=== PATIENT | male | born 1990 | race African-American/Black ===

== ENCOUNTER 2018-01-16 15:51 | Inpatient (IN) ==
--- NOTE | 2018-01-16 16:25 | ED ---
HPI General Chief Complaint: Psychiatric Symptoms Stated Complaint: Pysch Eval Time Seen by Provider: 01/16/18 16:22 Source: other (Dr. Gongora, [facility] ER physician) History of Present Illness HPI Narrative: This is a 27-year-old male who is Garcia acted by Dr. Dent, ER physician in [facility] and was transferred here for continued treatment and evaluation for psychiatry. Refer to patient visit number [id number] for Dr. Dent's documentation and medical clearance. He was medically cleared by Dr. Gongora prior to being transported. I received report from Dr. Gongora and he says patient has history of schizophrenia and has not been taking his medications 1 months and has been hallucinating and is having homicidal ideations towards his father. Related Data Home Medications Medication Instructions Recorded Confirmed aripiprazole 10 mg PO DAILY 01/16/18 01/16/18 benztropine 1 mg PO BID 01/16/18 01/16/18 citalopram 40 mg PO DAILY 01/16/18 01/16/18 paliperidone palmitate [Invega 156 mg IM QMONTH 01/16/18 01/16/18 Sustenna] Allergies Allergy/AdvReac Type Severity Reaction Status Date / Time No Known Allergies Allergy Unverified 01/16/18 12:07 [facility] Social History Social History Substance History: No History of Abuse and Past History Second Hand Smoke Exposure: Yes Smoking Status: Never smoker How Often Do You Have a Drink Containing Alcohol: Never Course Initial Documented Vital Signs Temperature 99.0 F 01/16/18 17:00 Pulse Rate 83 01/16/18 17:00 Respiratory Rate 18 01/16/18 17:00 Blood Pressure 152/96 H 01/16/18 17:00 Pulse Oximetry 99 01/16/18 17:00 Last Documented Vital Signs Temperature 98.7 F 01/19/18 06:00 Pulse Rate 90 01/19/18 06:00 Respiratory Rate 17 01/19/18 06:00 Blood Pressure 114/65 01/19/18 06:00 Pulse Oximetry 98 01/19/18 06:00 Medical Decision Making MDM Narrative Medical decision making narrative: Patient was transferred from [facility] by Dr. Dent under Garcia act. He was medically cleared prior to being transported from [facility]. Refer to patient visit number [id number] for Dr. Dent's documentation and medical clearance. I reviewed the labs and they were unremarkable. Psych screen ordered. Medical Screen Exam Complete: Yes Emergency Medical Condition: Yes Differential Diagnosis Differential Diagnosis: Schizophrenia, homicidal ideation, hallucinations, medical clearance for psychiatric evaluation Lab Data Lab Results 01/17/18 01/17/18 Range/Units 12:27 12:27 Hemoglobin A1c 5.4 (4.3-6.0) % Total Bilirubin 0.4 (0.2-1.0) mg/dL Direct Bilirubin 0.1 (0.0-0.2) mg/dL Indirect Bilirubin 0.3 (0.0-0.8) mg/dL AST 19 (15-37) U/L ALT 39 (12-78) U/L Alkaline Phosphatase 126 H (45-117) U/L Total Protein 7.5 (6.4-8.2) g/dL Albumin 3.7 (3.4-5.0) g/dL Triglycerides 228 H (42-150) mg/dL Cholesterol 175 (120-200) mg/dL LDL Cholesterol, Calc 98 (0-99) mg/dL HDL Cholesterol 31.4 L (40.0-60.0) mg/dL Cholesterol/HDL Ratio 5.57 Ratio Discharge Plan Discharge Disposition Patient Disposition: 30 Still Patient Discharge Condition Condition: Stable Discharge Details Diagnosis: Encounter for medical clearance for patient hold Physicians Team ED Provider: Faisal Rosales ED Midlevel Provider: La Nena Elise Primary Care Provider: UNKNOWN, Attending Provider: Caleb Cagle Other Providers: Caleb Cagle ; Utilizer, High Service Status ED Status: Left Department Discharge Information Discharge Date/Time: 01/16/18 21:26
[2018-01-16] MEDS ORDERED: Aluminum/Magnesium/Simethacone Susp 30 ML UDC PO PRN (19:42)
[2018-01-16] MEDS ORDERED: Acetaminophen 325 MG Tablet PO PRN (19:42)
[2018-01-17] MEDS ORDERED: LORazepam 1 MG Tablet PO PRN (10:38)
--- NOTE | 2018-01-17 10:40 | P.HPPSY ---
Provisional Diagnosis Admission Date: January 16, 2018 19:57 [place] [facility].: Schizophrenia Competence Certification of Person's Competence To Provide Express and Informed Consent I have personally examined Ever Dumont II, a person being served at [facility] on, January 17, 2018 1039. Express and informed consent means consent voluntarily given in writing, by a competent person, after sufficient explanation and disclosure of the subject matter involved to enable the person to make a knowing and willful decision without any element of force, fraud, deceit, duress, or other form of constraint or coercion. This person is 18 years of age or older, is not now known to be incompetent to consent to treatment with a guardian advocate, and does not have a health care surrogate or proxy currently making medical treatment decisions. I have found this person to be one of the following: [] Competent to provide express and informed consent, as defined above, for voluntary admission to this facility and is competent to provide express and informed consent for treatment. He/she has the consistent capacity to make well reasoned, willful, and knowing decisions concerning his or her medical or mental health treatment. The person fully and consistently understands the purpose of the admission for examination/placement and is fully capable of personally exercising all rights assured under [place]] Incompetent to provide express and informed consent to voluntary admission , and this is incompetent to provide express and informed consent to treatment. The person must be transferred to involuntary status and a petition for a guardian advocate filed with the Circuit Court. [] Refusing to provide express and informed consent to voluntary admission but is competent to provide express and informed consent for treatment. The person must be discharged or transferred to involuntary status. Form shall be completed within 24 hours of a person's arrival at the receiving facility and filed in the clinical record of each person: 1. Admitted on a voluntary basis 2. Permitted to provide express and informed consent to his/her own treatment 3. Allowed to transfer from involuntary to voluntary status 4. Prior to permitting a person to consent to his or her own treatment after having been previously found incompetent to consent to treatment. History of Present Illness Capacity: Lacks capacity History of Present Illness: Patient is a 27-year-old -Chinese man, single, no children, employed, domiciled with parents and brother, with a past psychiatric history of schizophrenia, one previous psychiatric admissions, multiple suicide attempts as per patient's, with no significant substance her past medical history, who was brought in under Garcia act by physician in the ER due to patient endorsing auditory hallucinations, homicidal ideations toward his father which patient was admitted to the inpatient psychiatry unit for further evaluation and management. Patient was found sitting hospital bed noted B, cooperative. Patient said he is feeling "okay" stating that he had "a dad and aware people who act like my dad, or impersonate him". Patient states that this has been happening all his life, noted be disorganized, rambling at times, loosening associations and tangential. Patient mentions having stopped his medications in May of this year and that he been endorsing auditory hallucinations command at times, as well as belief that everyone wanted to murder his father or that his father should kill himself which she states recurrent from the voices, family or friends. He mentions that he is having auditory hallucinations "all my life basically" and worse recently. Patient denies any SI or HI at this time but states that he wants his father to or go away. Collateral information obtained by patient's mother and father via telephone stated that the patient had been noted to be talking to himself for a while, stopped his medications about 8 months. He has noticed that S patient with talked himself he would mention toward his father recently that "everyone wanted to follow to kill himself" and that later had stated that he was having command auditory hallucinations to slit his father's throat which brought immediate concern to the family which led to patient being brought to the hospital. They state that the patient has follow-up at [facility] in [place]. Reported patient was previously on a day sustained last time being 1 year ago which patient had done very well well on this regimen. Past psychiatric history: Previous psychiatric diagnoses schizophrenia, one previous psychiatric admission, reports multiple suicide attempts Substance use history: Tobacco use occasionally, no alcohol or drug use. Past medical history: Denies Allergies: NKDA as per chart patient reports penicillin as a child Social history: Single, no children, unemployed, domiciled with parents and brother. - Inpatient Certification I certify that the inpatient services were ordered in accordance with Medicare regulations governing the order. This includes certification that hospital inpatient services are reasonable and necessary and in the case of services not specified as inpatient-only under 42 CFR 419.22(n), that they are appropriately provided as inpatient services in accordance to with the 2-midnight benchmark under 43 CFR 412.3(e) I certify that inpatient psychiatric hospital services are medically necessary. Evaluation and treatment and/or diagnostic testing are expected to improve the patient's condition. The patient needs on a daily basis, active treatment furnished directly by or requiring the supervision of inpatient psychiatric facility personnel. Estimated Total Length of Stay (Days): 7 Plans for Post Hospital Care: Not yet determined Review of Systems All other systems reviewed negative except as [facility] - History History Provided By: Patient, Family Member, Medical Record - Medical History Medical History: Medical History (Last Reviewed 01/16/18 @ 21:11 by Eyad Jamison MD) Schizophrenia - Surgical History Surgical History: Surgical History (Last Reviewed 01/16/18 @ 21:11 by Eyad Jamison MD) No history of previous surgery - Tobacco History Second Hand Smoke Exposure: Yes Smoking Status: Never smoker - Alcohol History How Often Do You Have a Drink Containing Alcohol: Never - Substance Use History Substance History: Past History - Immunization History Tetanus Immunization: >5 Years Hx Influenza Vaccine This Season: No Quality Measures - Psychiatric History Violence risk to others in the last 6 months: Elevated due to recent homicidal ideations Violence risk to self in the last 6 months: Low - Substance Abuse History Drug or alcohol use in the past 12 months: Denies - Patient Strengths Patient's strengths (minimum of 2): Verbal and communicative Medications and Allergies Active Medications: Active Medications Acetaminophen (Tylenol) 650 mg PO Q4H PRN PRN Reason: Pain 1-5 or Temp >101F Al Hydrox/Mg Hydrox/Simethicone (Mag-Al Plus Susp Liq) 30 ml PO Q6H PRN PRN Reason: DYSPEPSIA Al Hydroxide/Mg Hydroxide (Milk Of Magnesia Liq) 30 ml PO Q12H PRN PRN Reason: Mild Constipation Benztropine Mesylate (Cogentin) 0.5 mg PO BID ALYSON Diphenhydramine HCl (Benadryl) 50 mg PO HS PRN PRN Reason: INSOMNIA Lorazepam (Ativan) 1 mg PO Q6H PRN PRN Reason: ANXIETY Nicotine (Habitrol 21 Mg Patch.24 Hr) 1 patch T-DERMAL DAILY PRN PRN Reason: nicotine craving Patch Removal (Remove Old Patch) 1 each T-DERMAL DAILY ALYSON Risperidone (Risperdal) 1 mg PO BID ALYSON Allergies Allergy/AdvReac Type Severity Reaction Status Date / Time No Known Allergies Allergy Unverified 01/16/18 12:07 Home Medications Medication Instructions Recorded Confirmed Type aripiprazole 10 mg PO DAILY 01/16/18 01/16/18 History benztropine 1 mg PO BID 01/16/18 01/16/18 History citalopram 40 mg PO DAILY 01/16/18 01/16/18 History paliperidone palmitate [Invega 156 mg IM QMONTH 01/16/18 01/16/18 History Sustenna] Exam Vital signs: Vital Signs 01/16/18 17:00 01/16/18 23:11 01/17/18 06:00 Temperature 99.0 F 97.6 F 98.2 F Pulse Rate 83 88 82 Respiratory Rate 18 20 Blood Pressure 152/96 H 138/95 H 140/76 Pulse Oximetry 99 96 97 Intake & Output 01/16/18 01/17/18 01/17/18 18:59 06:59 18:59 Weight 123.3 kg Other: Weight On Admission 123.3 kg Narrative: Patient not noted to be in acute distress, no signs of gross motor abnormalities , no signs of tremor or EPS, no psychomotor agitation or retardation. - Constitutional no acute distress, cooperative Mental Status Examination Appearance: Appropriate Consciousness: Alert Orientation: Person, Place Motor Activity: Normal gait Speech: Unremarkable Language: Adequate Fund of Knowledge: Inadequate Attention and Concentration: Inadequate Memory: Impaired Mood: Other ("Okay") Affect: Blunt Thought Process & Associations: Loose associations, Disorganized, Tangential, Other (Rambling at times) Thought Content: Bizarre thinking, Hallucinations, Delusional Hallucination Type: Auditory Delusion Type: Paranoid Suicidal Ideation: No Suicidal Plan: No Suicidal Intention: No Homicidal Ideation: Yes Homicidal Plan: No Homicidal Intention: No Insight: Poor Judgment: Poor Assessment and Plan - Assessment (1) Schizophrenia Code(s): F20.9 - Schizophrenia, unspecified Status: Acute - Plan Plan: Estimated LOS: [] days Patient is a 37-year-old -Chinese man who carries a diagnosis schizophrenia, previous psychiatric admissions, multiple suicide attempts as per patient, history of noncompliance medication prior to the ED under Garcia act due to worsening psychotic symptoms as well as homicidal ideations toward his father was patient was admitted to the inpatient psychiatry for further psychiatric stabilization. We will start patient on risperidone 1 mg p.o. twice daily for psychosis, benztropine 0.5 mg p.o. twice daily for EPS. We will continue to monitor mood and behavior. Patient will be admitted on involuntary hospitalization, second opinion requested. Patient's mother will serve as health care surrogate and guardian advocate for this admission. Discharge planning a progress. Justification for Continued Inpatient Stay: At risk of further decompensation a lower level of care.
[2018-01-17 13:21] LABS: Albumin 3.7 g/dL (3.4-5.0)
[2018-01-17 13:23] LABS: Chol/HDL Ratio 5.57 Ratio; HDL Cholesterol 31.4 mg/dL (40.0-60.0); Total Protein 7.5 g/dL (6.4-8.2)
[2018-01-17 14:53] LABS: Hemoglobin A1c 5.4 % (4.3-6.0)
--- NOTE | 2018-01-18 16:21 | P.PNPSY ---
Subjective Chief Complaint: Schizophrenia Remarks: Medical record reviewed and discussed with nursing staff. Met with patient in his room with ROSEANNA Toussaint. Patient states that he stopped taking his medication because of the sexual side effects and he does not want to be impotent. Denies SI/HI. He presents very sad with blunted affect. He denies any auditory or visual hallucinations. Review of Systems All other systems reviewed negative except as stated in HPI Mental Status Examination Appearance: Appropriate Consciousness: Alert Orientation: Person, Place Motor Activity: Normal gait Speech: Unremarkable Language: Adequate Fund of Knowledge: Inadequate Attention and Concentration: Easily distracted Memory: Impaired Mood: Sad Affect: Flat, Blunt Thought Process & Associations: Loose associations, Disorganized Thought Content: Bizarre thinking, Hallucinations Hallucination Type: Auditory Delusion Type: Paranoid Suicidal Ideation: No Suicidal Plan: No Suicidal Intention: No Homicidal Ideation: Yes Homicidal Plan: No Homicidal Intention: No Insight: Poor Judgment: Poor Assessment and Plan - Assessment (1) Schizophrenia Code(s): F20.9 - Schizophrenia, unspecified Status: Acute - Plan Plan: Estimated LOS: [] days Patient understand that he needs to take his medications. He would like to talk to the psychiatrist tomorrow about the side effects of medications that he plans to prescribe. Justification for Continued Inpatient Stay: Moving patient to a less restrictive environment may result in his decompensation.
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
[2018-01-19 11:51] LABS: Albumin 3.5 g/dL (3.4-5.0)
[2018-01-19 11:52] LABS: Total Protein 7.2 g/dL (6.4-8.2)
--- NOTE | 2018-01-20 10:46 | P.PNPSY ---
Subjective Chief Complaint: Schizophrenia Remarks: Patient seen and examined with counselor and nurse. Chart reviewed. Case discussed with nursing staff who reports patient's behavior is occasionally bizarre, although there are no reports of aggression. Case discussed in treatment team. On my examination today, patient says that he finds it easier to concentrate with medication adjustment. He visited with his mother last night, and this reportedly went "pretty alright." He continues to believe that his father is an imposter, although this delusion may be softening somewhat. He does say that other people in his house are not worried about father being an imposter. He says that his violent ideation towards father is "way less today." He denies SI/HI otherwise. Denies side effects from medications. No physical complaints. Vital Signs Temp Pulse Resp BP Pulse Ox 01/20/18 05:53 97 H 17 124/73 99 01/19/18 15:41 98.1 F 98 H 18 141/81 H 99 Labs reviewed. Spoke with patient's mother/HCS. She reports patient has done well with Risperdal/Sustenna in the past but has discontinued these meds due to side effects, chiefly weight gain. I did suggest to mother that we continue with the Risperdal/Sustenna plan regardless because of prior efficacy, but she feels strongly that we ought to try a different agent for patient. She does emphasize that the OATES is essential given patient's tendency to stop oral meds. We discuss alternative antipsychotic options and settle on a trial of Abilify. Review of Systems All other systems reviewed negative except as stated in HPI (Limitation: Psychosis.) Mental Status Examination Appearance: Appropriate Consciousness: Alert Orientation: Person, Place (At least) Motor Activity: Normal gait, Other (No motor abnormalities noted.) Speech: Unremarkable Language: Adequate Fund of Knowledge: Inadequate Attention and Concentration: Easily distracted Memory: Impaired (Psychosis interferes) Mood: Other (Calm) Affect: Blunt Thought Process & Associations: Tangential Thought Content: Thought blocking (Perhaps decreasing), Delusional Hallucination Type: None Delusion Type: Paranoid, Other (Capgras regarding father, perhaps softening somewhat) Suicidal Ideation: No Suicidal Plan: No Suicidal Intention: No Homicidal Ideation: Yes (Towards father, decreasing) Homicidal Plan: No Homicidal Intention: No Insight: Poor Judgment: Poor Assessment and Plan - Assessment (1) Schizophrenia Code(s): F20.9 - Schizophrenia, unspecified Status: Acute - Plan Plan: Discontinue Risperdal and start Abilify 10mg qHS with plans to titrate to effect. Will plan on transitioning to Maintena if the oral Abilify is efficacious and well tolerated. R/B/A d/w HCS. Continue to monitor on the inpatient unit. Continue other medications and care as ordered. Justification for Continued Inpatient Stay: Medication changes. Impairment in reality construction. High risk for decompensation in less restrictive environment. Discharge Planning: Pending psychiatric stabilization. Request Healthcare Surrogate/Guardian Advocate?: Yes (1) Schizophrenia Qualifiers: Schizophrenia type: paranoid schizophrenia Qualified Code(s): F20.0 - Paranoid schizophrenia
--- NOTE | 2018-01-20 14:32 | P.TTN ---
- Patient Problems Problems: 1. Discharge planning 2. Medication compliance 3. Knowledge deficit 4. Lack of coping skills - Progress Toward Goals Provider Present: Dr. Jose Cagle (Titrating resperdol. Pt. may recieve long acting injectable.) Psychiatric Counselors Present: Carlos Kraft Jr., RCSWI (Unstable/manic/ psychotic/internally stimulated.) Group Spec/RT/OT/HERNANDEZ Present: DAVID Hawthorne (Pt. does not attend groups.) - Documentation Teaching Recipient: Patient
[2018-01-20] MEDS ORDERED: ARIPiprazole 10 MG Tablet PO SCH (21:00)
--- NOTE | 2018-01-21 11:31 | P.PNPSY ---
Subjective Chief Complaint: Schizophrenia Remarks: Patient seen and examined with nurse. Chart reviewed. Case discussed with nursing staff. Nurse reports that the patient has been eating poorly although he did take a meal last night. He also was apparently paranoid regarding medications this morning and says that they "smell perfumy." Patient also reported to nursing staff last night that he felt that the Abilify made him feel more angry. On my examination today, the patient does seem a little bit more dysphoric, but this seems to have a psychotic basis. He is quite paranoid regarding the [employer] notice paperwork with which he has been served today. He believes that the paperwork applies to his father and believes that there is some sort of "cover up" going on. He does seem much more interactive and conversant on Abilify versus the Risperdal. No SI or HI. I did endeavor to explain legal status to him and upcoming [employer] court, although his psychotic process makes this somewhat difficult. No reported side effects from medications today. No physical complaints. Vital Signs Temp Pulse Resp BP Pulse Ox 01/21/18 06:03 98.1 F 97 H 18 113/58 L 99 01/20/18 16:58 98.2 F 87 16 107/66 98 Labs reviewed. No new labs. Review of Systems All other systems reviewed negative except as stated in HPI (Limitation: Psychosis) Mental Status Examination Appearance: Appropriate Consciousness: Alert Orientation: Person, Place (At least) Motor Activity: Normal gait, Other (No hand tremor, no dystonia, no dyskinesia, no other motor abnormalities noted. No signs of restlessness or akathisia.) Speech: Unremarkable Language: Adequate Fund of Knowledge: Inadequate Attention and Concentration: Easily distracted Memory: Impaired (Psychosis interferes) Mood: Irritable Affect: Irritable Thought Process & Associations: Tangential Thought Content: Delusional, Other (Thought blocking improved today) Hallucination Type: None Delusion Type: Paranoid, Other (Capgras regarding father, perhaps softening somewhat) Suicidal Ideation: No Suicidal Plan: No Suicidal Intention: No Homicidal Ideation: No Homicidal Plan: No Homicidal Intention: No Insight: Poor Judgment: Poor Assessment and Plan - Assessment (1) Schizophrenia Code(s): F20.9 - Schizophrenia, unspecified Status: Acute - Plan Plan: Patient does seem improved with the Abilify in the sense that he is more spontaneous and interactive and so I think it is worth continuing to try to titrate this medication. I suspect that some of the patient's "anger" that he was experiencing last evening reportedly was secondary to paranoia due to a relatively lower Abilify dose compared to his Risperdal dose. I will therefore titrate his Abilify dose to 15 mg at bedtime with plans for ongoing titration to effect. Long-term plan remains for long-acting injectable antipsychotic. Continue to monitor on high acuity unit. Continue other medications and care as ordered. Justification for Continued Inpatient Stay: Medication changes. Impairment in reality construction. High risk for decompensation in less restrictive environment. Discharge Planning: Pending psychiatric stabilization. Request Healthcare Surrogate/Guardian Advocate?: Yes (1) Schizophrenia Qualifiers: Schizophrenia type: paranoid schizophrenia Qualified Code(s): F20.0 - Paranoid schizophrenia
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
--- NOTE | 2018-01-22 11:48 | P.DIET ---
Nutritional Evaluation Type of nutrition evaluation: initial Nutrition consult regarding: Diet Evaluation (MDC for Poor PO Intake) Subjective Subjective Comments: Pt has stated that he stopped taking his medications 2/2 weight gain. He tends to eat more snacks then actual meals. Objective - Diagnosis Psychosis - Objective % IBW: 147 ([id number]#) Body Weight Used for Calculations: IBW (83.6kg) Energy Needs - Lower Range (kCal/kg): 25 Energy Needs - Upper Range (kCal/kg): 30 Lower Limit kCal/kg (kCals): 2,090 Upper Limit kCal/kg (kCals): 2,508 Lower Limit Protein Factor (Grams per Kg): 1.0 Upper Limit Protein Factor (Grams per Kg): 1.2 Lower Protein Needs (Protein): 84 Upper Protein Needs (Protein): 100 Dietitian Reviewed in Medical Record: Current diet, Curent medications, Intake & Output, Labs, Medical history Diet Order: Regular Assessment Assessment: Pt admitted for psychosis. He is at 147% of his IBW. Currently on a Regular diet , which is appropriate. Pt has been refusing a lot of meals, but does tend to eat snacks when offered to him. I am not sure if this is an appetite issue or more behavior related. I will add Ensure TID to his trays, plus some "snack" foods like ice cream, pudding, jello, fruit cups, etc. to see if this interests the pt. Dietitian following. Recommendations: 1. Continue Regular diet. 2. Ensure TID. 3. Will provide more "snack" type foods on his meal trays. Dietitian to Monitor: Lab values, Supplement acceptance, Intake & Output, Diet tolerance, Weight change, PO Intake, Medical course
[2018-01-22] MEDS ORDERED: Paliperidone Inj 234 MG/1.5 ML Syringe IM ONE (12:00)
[2018-01-22] MEDS: risperiDONE 2 MG ODT PO SCH (20:40)
[2018-01-23] MEDS: risperiDONE 2 MG ODT PO SCH ×2 (08:22→22:35)
--- NOTE | 2018-01-23 15:07 | P.PNPSY ---
Subjective Chief Complaint: Schizophrenia Remarks: Reviewed electronic medical records and discussed case with staff. Follow-up was conducted in the patient's room. Staff reports that the patient has been much better today. He ate breakfast and is observed walking around the unit. There is no indication of internal stimulation or thought blocking. He states that he slept well and has a good appetite. He denies any concerns from the medications other than he reports his "bottom is sore". In speaking with him, he still exhibits some disorganization of speech. Staff advises been no behavioral disturbances today. Mental Status Examination Appearance: Appropriate Consciousness: Alert, Vigilant Orientation: Person, Place (At least) Motor Activity: Normal gait, Other (No motor abnormalities noted.) Speech: Unremarkable Language: Adequate Fund of Knowledge: Inadequate Attention and Concentration: Easily distracted Memory: Impaired (Psychosis interferes) Mood: Angry, Irritable Affect: Irritable, Labile Thought Process & Associations: Tangential Thought Content: Delusional Hallucination Type: None Delusion Type: Paranoid, Other (Ongoing paranoid delusions regarding father) Suicidal Ideation: No Suicidal Plan: No Suicidal Intention: No Homicidal Ideation: Yes Homicidal Plan: No Homicidal Intention: No Insight: Poor Judgment: Poor Assessment and Plan - Assessment (1) Schizophrenia Code(s): F20.9 - Schizophrenia, unspecified Status: Acute - Plan Plan: Patient will be reevaluated Friday by the attending psychiatrist. Continue with current treatment plan. Justification for Continued Inpatient Stay: Moving this patient to a less restrictive environment would likely result in decompensation. Request Healthcare Surrogate/Guardian Advocate?: Yes
[2018-01-24] MEDS: risperiDONE 2 MG ODT PO SCH ×2 (09:26→21:17)
--- NOTE | 2018-01-24 12:48 | P.PNPSY ---
Subjective Chief Complaint: Schizophrenia Remarks: Reviewed electronic medical records and discussed case with staff. Follow-up was conducted in the hallway with she Gonzalezor present. Patient reports that he feels he is "doing better". He then goes on to state he thinks the medications are making him agitated. When asked about his thoughts he states that he feels they are "more calm". Reports that he slept okay and his appetite is been "all right". He is observed on the unit and interacting appropriately with other patients. Staff report no behavioral disturbances. Mental Status Examination Appearance: Appropriate Consciousness: Alert, Vigilant Orientation: Person, Place (At least) Motor Activity: Normal gait, Other (No motor abnormalities noted.) Speech: Unremarkable Language: Adequate Fund of Knowledge: Inadequate Attention and Concentration: Easily distracted Memory: Impaired (Psychosis interferes) Mood: Angry, Irritable Affect: Irritable, Labile Thought Process & Associations: Tangential Thought Content: Delusional Hallucination Type: None Delusion Type: Paranoid, Other (Ongoing paranoid delusions regarding father) Suicidal Ideation: No Suicidal Plan: No Suicidal Intention: No Homicidal Ideation: Yes Homicidal Plan: No Homicidal Intention: No Insight: Poor Judgment: Poor Assessment and Plan - Assessment (1) Schizophrenia Code(s): F20.9 - Schizophrenia, unspecified Status: Acute - Plan Plan: Patient will be reevaluated Friday by the attending psychiatrist. Continue with current treatment plan. Justification for Continued Inpatient Stay: Moving this patient to a less restrictive environment would likely result in decompensation. Request Healthcare Surrogate/Guardian Advocate?: Yes
[2018-01-25] MEDS: risperiDONE 2 MG ODT PO SCH ×2 (08:42→21:00)
--- NOTE | 2018-01-25 11:55 | P.PNPSY ---
Subjective Chief Complaint: Schizophrenia Remarks: Reviewed electronic medical records and discussed case with staff. Follow-up was conducted in the hallway with MARTITA Arguelles. Patient states that he is no longer hearing voices are seeing anything visual. He feels that he is improving. The staff reports that he is not eating. He did agree to eat salads if they were ordered. He states he is trying to loose weight, but the regular food here does not agree with him. He endorses that he is sleeping well. He is medication compliant. Review of Systems All other systems reviewed negative except as stated in HPI Mental Status Examination Appearance: Appropriate Consciousness: Alert, Vigilant Orientation: Person, Place (At least) Motor Activity: Normal gait, Other (No motor abnormalities noted.) Speech: Unremarkable Language: Adequate Fund of Knowledge: Inadequate Attention and Concentration: Easily distracted Memory: Impaired (Psychosis interferes) Mood: Appropriate, Irritable Affect: Sad Thought Process & Associations: Tangential Thought Content: Delusional Hallucination Type: None Delusion Type: Paranoid, Other (Ongoing paranoid delusions regarding father) Suicidal Ideation: No Suicidal Plan: No Suicidal Intention: No Homicidal Ideation: Yes Homicidal Plan: No Homicidal Intention: No Insight: Poor Judgment: Poor Assessment and Plan - Assessment (1) Schizophrenia Code(s): F20.9 - Schizophrenia, unspecified Status: Acute - Plan Plan: Patient will be reevaluated Friday by the attending psychiatrist. Continue with current treatment plan. Justification for Continued Inpatient Stay: Moving patient to a less restrictive environment may result in his decompensation. Request Healthcare Surrogate/Guardian Advocate?: Yes
[2018-01-26] MEDS: risperiDONE 2 MG ODT PO SCH ×2 (08:28→20:44)
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
[2018-01-26] MEDS ORDERED: Paliperidone Inj 156 MG/ML Syringe IM SCH (13:00)
--- NOTE | 2018-01-27 10:13 | P.PNPSY ---
Subjective Chief Complaint: Schizophrenia Remarks: Patient seen and examined with counselor and nurse. Chart reviewed. Patient a little bit hypotensive and bradycardic this morning, asymptomatic. I have discontinued patient's oral Risperdal as the patient has now received his booster dose of Invega Sustenna. Case discussed with nursing staff. No behavioral issues noted. Case discussed in treatment team. On my examination today, the patient is calm and cooperative. He visited with his mother and father last night and says that this visit was a good one. Counselor will call parents today for details. He denies any homicidal ideation towards father or anyone else. Denies any suicidal ideation. Denies any hallucinations. He tells me "I do not feel as negative." Denies side effects from medications besides some mild tiredness. No other physical complaints. Vital Signs Temp Pulse Resp BP Pulse Ox 01/27/18 05:19 98.6 F 46 L 17 117/54 L 97 Labs reviewed. No new labs. Review of Systems All other systems reviewed negative except as stated in HPI Mental Status Examination Appearance: Appropriate Consciousness: Alert Orientation: Person, Place (At least) Motor Activity: Normal gait, Other (No abnormal motor movements noted.) Speech: Unremarkable Language: Adequate Fund of Knowledge: Adequate Attention and Concentration: Adequate Memory: Unremarkable Mood: Appropriate Affect: Appropriate Thought Process & Associations: Intact Thought Content: Appropriate Hallucination Type: None Delusion Type: None Suicidal Ideation: No Suicidal Plan: No Suicidal Intention: No Homicidal Ideation: No Homicidal Plan: No Homicidal Intention: No Insight: Poor Judgment: Poor Assessment and Plan - Assessment (1) Schizophrenia Code(s): F20.9 - Schizophrenia, unspecified Status: Acute - Plan Plan: Discontinue oral Risperdal. Patient has received both doses of Invega Sustenna. Continue scheduled Cogentin. Continue to monitor on the inpatient unit. Counselor will ask parents to visit again tonight to ensure last night's visit (if it was indeed a good one) wasn't a one-off. Transfer to 2600 unit. Continue other medications and care as ordered. Justification for Continued Inpatient Stay: Discharge planning Discharge Planning: Possible discharge tomorrow, Friday. Request Healthcare Surrogate/Guardian Advocate?: Yes (1) Schizophrenia Qualifiers: Schizophrenia type: paranoid schizophrenia Qualified Code(s): F20.0 - Paranoid schizophrenia
[2018-01-28 06:09] VITALS: BP 121/67; PULSE 51; RESP 15; TEMP 97.7; O2SAT 94
--- NOTE | 2018-01-28 13:00 | P.DSPSY ---
Psychiatry Discharge Summary Inpatient Psychiatric care?: Yes Advance Directives: No Mental Health Advance Directive: No Health Care Proxy: No - Admission Admission Date: January 16, 2018 19:57 - Admission Diagnosis (1) Schizophrenia Code(s): F20.9 - Schizophrenia, unspecified Brief History: Patient is a 27-year-old -[place] man, single, no children, employed, domiciled with parents and brother, with a past psychiatric history of schizophrenia, one previous psychiatric admissions, multiple suicide attempts as per patient's, with no significant substance her past medical history, who was brought in under [facility] act by physician in the ER due to patient endorsing auditory hallucinations, homicidal ideations toward his father which patient was admitted to the inpatient psychiatry unit for further evaluation and management. Patient was found sitting hospital bed noted B, cooperative. Patient said he is feeling "okay" stating that he had "a dad and aware people who act like my dad, or impersonate him". Patient states that this has been happening all his life, noted be disorganized, rambling at times, loosening associations and tangential. Patient mentions having stopped his medications in May of this year and that he been endorsing auditory hallucinations command at times, as well as belief that everyone wanted to murder his father or that his father should kill himself which she states recurrent from the voices, family or friends. He mentions that he is having auditory hallucinations "all my life basically" and worse recently. Patient denies any SI or HI at this time but states that he wants his father to or go away. Collateral information obtained by patient's mother and father via telephone stated that the patient had been noted to be talking to himself for a while, stopped his medications about 8 months. He has noticed that S patient with talked himself he would mention toward his father recently that "everyone wanted to follow to kill himself" and that later had stated that he was having command auditory hallucinations to slit his father's throat which brought immediate concern to the family which led to patient being brought to the hospital. They state that the patient has follow-up at [facility] in [place]. Reported patient was previously on a day sustained last time being 1 year ago which patient had done very well well on this regimen. Past psychiatric history: Previous psychiatric diagnoses schizophrenia, one previous psychiatric admission, reports multiple suicide attempts Substance use history: Tobacco use occasionally, no alcohol or drug use. Past medical history: Denies Allergies: NKDA as per chart patient reports penicillin as a child Social history: Single, no children, unemployed, domiciled with parents and brother. Tobacco Use In Past 30 Days: No How Often Do You Have a Drink Containing Alcohol: Never Hospital Course: Patient was admitted to a locked, inpatient psychiatric unit. Appropriate precautions were in place throughout patient's hospital stay. Patient was seen and examined on the unit by psychiatry and also visited by counselor. Psychotropic medications were adjusted. Patient tolerated medication changes well without side effects. Abilify was briefly tried but found to be far less efficacious for patient's psychosis. The patient had a much more robust response to Risperdal and was transitioned to Invega Sustenna. He received both the initial and booster dose of Invega Sustenna prior to discharge. Patient had improvement in presenting psychiatric symptomatology during the course of his hospital stay. Patient's behavior improved with the benefit of psychopharmacologic treatment. He had resolution of his [place]gras delusion regarding his father. Patient was able to maintain appropriate behavioral control during two separate visitations with mother and father prior to discharge. Collateral information obtained from parents. On the day of discharge: Patient seen and examined with nurse. Chart reviewed. Case discussed with nursing staff. No behavioral issues noted overnight. Patient is tolerating the lower acuity unit milieu well. Case discussed with counselor who reports that parents are comfortable accepting the patient home today. On my examination today, the patient is requesting discharge from the inpatient psychiatric unit today. He denies any suicidal or homicidal ideation, intent or plan. In particular, the patient denies any violent or homicidal ideation against his father. When asked if he believes that his father is an impostor he says "he's no impostor." I can elicit no depressive or hypomanic/manic symptoms. He denies any audiovisual hallucinations. I can elicit no delusional material. He denies any side effects from medications. Education provided regarding discharge medication regimen including need for follow-up and Boyd sustain a injections. No physical complaints. Suicide and violence risk assessment on day of discharge both suggest lower imminent risk from mental illness and the patient's level of function is adequate for outpatient care. Patient has maximized benefit from this inpatient psychiatric hospital stay. Patient will be discharged home today with psychiatric follow-up as arranged by counselor. Patient is also to follow up with primary care. I have counseled the patient to abstain from any substances of abuse. I have counseled the patient regarding warning signs for need to return to the psychiatric emergency room as part of a general safety plan. - Discharge Discharge Date: 01/28/18 - Discharge Diagnosis (1) Schizophrenia Diagnosis: Principal (Stabilized) Code(s): F20.9 - Schizophrenia, unspecified Status: Acute Discharge Disposition: Home - Discharge Instructions Discharge Diet: Regular Diet Activities You Can Perform: Weight Bearing As Tolerat - Discharge Time <= 30 minutes Mental Status Examination Appearance: Appropriate Consciousness: Alert Orientation: x4 Motor Activity: Normal gait, Other (No motoric abnormalities noted.) Speech: Unremarkable Language: Adequate Fund of Knowledge: Adequate Attention and Concentration: Adequate Memory: Unremarkable Mood: Appropriate Affect: Appropriate Thought Process & Associations: Intact, Logical, Linear Thought Content: Appropriate Hallucination Type: None Delusion Type: None Suicidal Ideation: No Suicidal Plan: No Suicidal Intention: No Homicidal Ideation: No Homicidal Plan: No Homicidal Intention: No Mental Status Exam Remarks: Insight and judgment are likely chronically fair to poor. Discharge/Advance Care Plan - Results Vital Signs: Last Vital Signs Temp 97.7 F 01/28/18 06:08 Pulse 51 L 01/28/18 06:08 Resp 15 01/28/18 06:08 BP 121/67 01/28/18 06:08 Pulse Ox 94 L 01/28/18 06:08 Lab Results: Laboratory Results Hemoglobin A1c 5.4 % (4.3-6.0) 01/17/18 12:27 Triglycerides 228 mg/dL (42-150) H 01/17/18 12:27 Cholesterol 175 mg/dL (120-200) 01/17/18 12:27 LDL Cholesterol, Calc 98 mg/dL (0-99) 01/17/18 12:27 HDL Cholesterol 31.4 mg/dL (40.0-60.0) L 01/17/18 12:27 Summary of Procedures: None done. Pending Results: None - Medications Number of antipsychotic medications at discharge: 1 - Discharge Care Plan Goals to Promote Your Health: * To prevent worsening of your condition and complications * To maintain your health at the optimal level Directions to Meet Your Goals: Take your medications as prescribed Follow your dietary instruction Follow activity as directed Keep your appointments as scheduled Take your immunizations and boosters as scheduled If your symptoms worsen call your PCP, if no PCP go to Urgent Care Center or Emergency Room For 02/12 questions related to your inpatient stay or results of tests pending at discharge, please contact Dr. Caleb Cagle MD at Smoking is Dangerous to Your Health. Avoid second hand smoking (1) Schizophrenia Qualifiers: Schizophrenia type: paranoid schizophrenia Qualified Code(s): F20.0 - Paranoid schizophrenia (1) Schizophrenia Qualifiers: Schizophrenia type: paranoid schizophrenia Qualified Code(s): F20.0 - Paranoid schizophrenia
== END 2018-01-28 14:00 | disposition home or self-care (01) ==
LOC: NEPJ 15:51 → NEDA 19:57 → H270 21:28 → H260 01-27 15:08
PROVIDERS: ADMIT Psychiatry & Neurology Psychiatry; ATTEND Psychiatry & Neurology Psychiatry